=== PATIENT | female | born 1960 | race Caucasian/White ===

== ENCOUNTER 2016-10-20 13:00 | Day surgery (SDC) | payer OTHER ==
[~2016-10-20] VITALS: Ht 160 cm; Wt 77.0 kg
[~2016-10-20 13:00] MED LIST: 0.9% Sodium Chloride 1,000 ML IV SCH; ACYC400T2 PO; BIOT5000 PO; CELE200C PO; CHOL500050 PO; CITA20TA11 PO; ESTR1TAB24 PO; LACT100C2 PO; LEVO112T4 PO; MEDR5TAB PO; PSYL1PAC10 PO; Sodium Chloride LOK Flush 10 mL Syringe IV PRN; TRAZ-115 PO; fentaNYL-PF 50 mCg/mL 2 mL Inj IVPUSH PRN
[2016-10-20 13:32] VITALS: BP 148/90; PULSE 65; RESP 14; O2SAT 99
--- NOTE | 2016-10-20 15:04 | PCM.ENDCOL ---
Colonoscopy Date of Service: Oct 20, 2016 Physician Paul Alvarez MD Indication for Procedure Screening Post Procedure Dx & Findings: Polyp hemorrhoids and diverticulosis Procedure Colonoscopy PROCEDURE IN DETAIL: Prep adequate Withdrawal time13 min After unremarkable rectal examination the Olympus video colonoscope was inserted patient's anal canal and was advanced to cecum. Landmarks were identified including the ileocecal valve and appendiceal orifice. Scope was withdrawn systematically. Visualized colonic mucosa showed healthy shiny mucosa with normal healthy-appearing vasculature. In the ascending colon, there were 2 polyps. Both were 1 mm in size. These were removed completely using cold forceps. In the rectum, there was a 1 mm polyp was removed completely with cold forceps. In the sigmoid colon there were several small radiculiti. In the rectum retroflexion was done which showed hemorrhoids. Anal canal was inspected carefully on the way out and hemorrhoids noted. Impression Polyps 3 status post complete removal Diverticulosis Hemorrhoids Recommendation Repeat colonoscopy 3 years Diverticular diet Presedation Assessment Risks and Benefits Informed consent was obtained from the patient after all risks and benefits including but not limited to drug reaction, infection, pain, bleeding, perforation, as well as alternatives were discussed. Patient monitoring Continuous pulse oximetry, cardiac monitoring, blood pressure monitoring, IV access, and oxygen at 2L per nasal cannula. Periprocedural Fentanyl: Fentanyl 125mcg Incrementally Midazolam: Midazolam 6mg Incrementally Complications There were no periprocedural complications identified. Post Procedure Plan Post Procedure Recommendations 1. Restrict activities today. 2. Resume normal activities in the morning. 3. Resume medications. 4. Patient informed of normal post procedure side effects as bloating, drowsiness, blood streaking in the stool. 5. average risk CRCS. If colon polyps come back as: -Hyperplastic- can repeat colonoscopy in 10 years -Tubular adenoma- repeat colonoscopy in 5 years -Tubulovillous/villous adenoma- repeat colonoscopy in 3 years -If any dysplasia- return to clinic as soon as possible 6. Please don't hesitate to call me with any questions. Paul Alvarez MD Oct 20, 2016 15:04
[2016-10-20 15:08] VITALS: BP 135/74; PULSE 73; O2SAT 98
[2016-10-20 15:17] VITALS: BP 130/80; PULSE 68; O2SAT 96
[2016-10-20 15:25] VITALS: BP 135/87; PULSE 77; RESP 16; O2SAT 98
--- NOTE | 2016-10-23 09:34 | PATH ---
SURGICAL PATHOLOGY Attending Physician:Paul Alvarez M.D. CASE STATUS: Signed Out PATIENT NAME: JAK MENENDEZ PID: [id number] : 1960 DATE COLLECTED:10/20/2016 00:00 SPECIMEN: 1: Colon, Polyp 2: Rectum, Biopsy CLINICAL HISTORY: 1. ASCENDING POLYP X2 2. RECTUM POLYP X1 FINAL DIAGNOSIS: 1.ASCENDING COLON, POLYPS, BIOPSIES: PORTIONS OF TUBULAR ADENOMA x 2; NEGATIVE FOR HIGH-GRADE DYSPLASIA. 2.RECTUM, POLYP, BIOPSY: HYPERPLASTIC POLYP. ICD10 K63.5 GROSS DESCRIPTION: Received two formalin-filled containers, both labeled with the patient's name. 1. In a container labeled "ascending polyp", specimen consists of two extremely tiny portions of tissue which aggregate to 0.1 x 0.1 x 0.1 cm. The specimen is entirely submitted in cassette 1A. 2. The specimen is labeled "descending polyp" and consists of a 0.2 x 0.2 x 0.2 cm portion of tissue which is entirely submitted in cassette 2A. [place] [id number][place] MICRO DESCRIPTION: See diagnosis. ICD-9 CODES: CPT CODES: 1: 45425 2: 98584 Electronically Signed Out Ayah Trivedi MD [facility] Pathology [facility] [address], [place] [address] Technical component performed at [facility], [facility] [address], [place], [address]
== END 2016-10-20 23:59 | disposition home or self-care (01) ==
LOC: END 13:00
PROVIDERS: ATTEND Internal Medicine
DX: Z12.11 Encounter for screening for malignant neoplasm of colon (principal); Z86.010 Personal history of colon polyps; D12.2 Benign neoplasm of ascending colon; K62.1 Rectal polyp; K64.9 Unspecified hemorrhoids; K57.30 Diverticulosis of large intestine without perforation or abscess without bleeding; K58.9 Irritable bowel syndrome, unspecified; E03.9 Hypothyroidism, unspecified; F41.8 Other specified anxiety disorders; Z79.890 Hormone replacement therapy; Z87.891 Personal history of nicotine dependence
CPT/HCPCS: 45380; 99153; G0500; J2250; J3010; J7030